=== PATIENT | male | born 1980 | race Caucasian/White ===

== ENCOUNTER → 2021-07-19 | Outpatient (CLI) | payer BC, OTHER ==
--- NOTE | 2021-07-19 16:47 | RAD ---
US ABDOMEN OR LOWER BACK LIMITED History: Right upper quadrant pain Comparison: None. Technique: Sonographic examination of the right upper quadrant of the abdomen. Findings: Pancreas: Visualized head and body are unremarkable. Liver: The liver measures 15.1 cm. Liver echotexture is normal. No focal hepatic lesions. Hepatopet al flow in the portal vein. Gallbladder: No gallstones, wall thickening or pericholecystic fluid. Small amount nonshadowing sludg e is present within the gallbladder neck. Bile ducts: The common duct measures 3 mm. Right kidney: 11.5 cm length. No mass or hydronephrosis. Aorta/IVC: Visualized portions are unremarkable. Other: No ascites. Impression: 1. Small nonshadowing sludge in the gallbladder neck. No evidence of acute cholecystitis. 2. Normal hepatic echotexture. Electronically signed by: Murali Benítez MD (07/19/2021 4:45 PM) [id number]
== END ==
LOC: US 12:51
PROVIDERS: ATTEND Physician Assistant
DX: K82.8 Other specified diseases of gallbladder (principal)
CPT/HCPCS: 76705